=== PATIENT | male | born 1935 | race Caucasian/White ===

== ENCOUNTER → 2024-04-04 07:23 | Outpatient (REF) | payer MEDICARE, BC, SELFPAY ==
[2024-04-04] MEDS: LEXISCAN 0.4 MG IV (09:03)
== END ==
LOC: RCS 07:23
PROVIDERS: ATTENDING PHYSICIAN Internal Medicine Cardiovascular Disease; FAMILY PHYSICIAN Family Medicine
DX: R07.9 Chest pain, unspecified (principal); R06.02 Shortness of breath
CPT/HCPCS: 78452; 93017; A9500; J2785